=== PATIENT | female | born 1995 | race Caucasian/White ===

== ENCOUNTER 2020-12-20 00:06 | Emergency (ER) | payer OTHER ==
[2020-12-20] MEDS ORDERED: Cephalexin 500 MG Cap PO ONE (01:24)
--- NOTE | 2020-12-20 01:54 | EDM.PDOC ---
ED HPI GENERAL MEDICAL PROBLEM - General Chief Complaint: Genitourinary Problem Stated Complaint: POSSIBLE UTI Time Seen by Provider: 12/20/20 00:42 - History of Present Illness INITIAL COMMENTS - FREE TEXT/NARRATIVE: CHIEF COMPLAINT(S): Blood in urine HISTORY OF PRESENT ILLNESS: This is a 25-year-old woman without any significant past medical history who comes to the emergency department with a chief complaint of blood in urine. The patient states that approximately 2 hours ago she suddenly started experiencing suprapubic pressure and when she went to use the restroom she noticed blood in her urine. She denies any vaginal bleeding as she checked. She denies any pain with urination but states that she does have increased urination. She denies any back pain, fever or chills. She states that she has had urinary tract infections in the past but has not had bleeding with them. She denies any other symptoms such as chest pain, shortness of breath, abdominal pain, nausea, or vomiting. REVIEW OF SYSTEMS: Constitutional: Denies fever, chills. Eyes: Denies eye pain Ears, Nose, Mouth, & Throat: Denies earache Cardiovascular: Denies chest pain Respiratory: Denies shortness of breath Gastrointestinal: Denies Nausea, vomiting, diarrhea, hematochezia. Genitourinary: Positive for hematuria and increased urinary frequency and suprapubic pressure. Denies dysuria or vaginal bleeding or discharge Skin:Denies a rash Neurological: Denies blurred vision, numbness, tingling, weakness Psychiatric: Denies depression PAST MEDICAL HISTORY: As per history of present illness and as reviewed below otherwise noncontributory. SURGICAL HISTORY: As per history of present illness and as reviewed below otherwise noncontributory. SOCIAL HISTORY: As per history of present illness and as reviewed below otherwise noncontributory. FAMILY HISTORY: As per history of present illness and as reviewed below otherwise noncontributory. EXAMINATION OF ORGAN SYSTEMS/BODY AREAS: Constitutional: Blood pressure was 138/87, heart rate 95, respiratory rate 16 with an oxygen saturation 97% on room air. Temperature 36.3 General: Overall well-appearing woman who is in no acute distress. Psychiatric: Appropriate mood and affect. Eyes: No scleral icterus or conjunctival erythema ENMT: Moist mucous membranes. No pharyngeal erythema Cardiovascular: Regular, rate, and rhythm. No gallops, murmurs, or rubs. Bilateral upper extremity pulses symmetric and intact. No peripheral edema. No JVD. Respiratory: Lungs clear to auscultation bilaterally. No wheezes, rales, or rhonchi. Gastrointestinal: Soft, non-tender, non-distended. Normoactive bowel sounds Genitourinary: Mild suprapubic pressure sensation with palpation. No CVA tenderness. Pelvic examination deferred as patient does not believe it is coming from her vaginal canal. Musculoskeletal: Normal range of motion. Skin: No lesions or abrasions. Neurological: Alert, GCS 15 MEDICAL DECISION MAKING AND COURSE IN THE ED WITH INTERPRETATION/REVIEW OF DIAGNOSTIC STUDIES: This is a 25-year-old woman with a past medical history of prior UTI who comes to the emergency department with sudden onset hematuria with suprapubic pressure without any vital sign abnormalities or CVA tenderness. At this time will obtain a urinalysis. Obtain an hCG level. Given the hematuria the most common causes a urinary tract infection. Differential does include nephrolithiasis however the patient is currently not experiencing any back pain or radiation of pain from her back. The patient overall appears well and comfortable therefore no CT will be obtained. Urinalysis was a clean catch and was trace for leukocyte esterase, negative for nitrites, and positive for blood. WBC count 2-4. Interpretation: Hematuria hCG is negative After urinalysis I did discuss with her that the most common cause of hematuria is from cystitis. I discussed with her that I will be providing her with Keflex here and a prescription to be taking at home. I did discuss her at this time differential also included nephrolithiasis however given that she is currently not experiencing any back pain and is appearing well if there is a small stone it may pass on its own. I discussed with her that if she were to have any worsening symptoms such as increased pain, development of back pain, decreased urination, or fever she should return to the emergency department. She was amenable to discharge at this time and had no further questions DISPOSITION: The patient was discharged home in stable condition. The patient will follow up with primary care physician in [place] CONDITION: Fair PROCEDURES: None FINAL IMPRESSION(S)/DIAGNOSES: 1. Acute hematuria likely secondary to cystitis Joel Van M.D. 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: - Infectious Disease History Infectious Disease History: Reports: Herpes Social & Family History - Family History Family Medical History: No Pertinent Family History - Tobacco Use Packs/Tins Daily: 0.5 - Caffeine Use Caffeine Use: Reports: None - Recreational Drug Use Recreational Drug Use: No ED ROS GENERAL - Review of Systems Review Of Systems: See Below ED EXAM, RENAL/ - Physical Exam Exam: See Below Course - Vital Signs Last Recorded V/S: Last Vital Signs Temp 36.3 C 12/20/20 00:34 Pulse 62 12/20/20 01:44 Resp 18 12/20/20 01:44 BP 131/67 12/20/20 01:44 Pulse Ox 97 12/20/20 01:44 - Orders/Labs/Meds Orders: Active Orders 24 hr Category Date Time Status CULTURE URINE [RM] Stat Lab 12/20/20 00:19 Received Labs: Laboratory Tests 12/20/20 12/20/20 Range/Units 00:19 00:19 Urine Color RED Urine Appearance CLOUDY Urine pH 6.0 (5.0-8.0) Ur Specific Rogers >= 1.030 (1.001-1.035) Urine Protein 100 H (NEGATIVE) mg/dL Urine Glucose (UA) NEGATIVE (NEGATIVE) mg/dL Urine Ketones NEGATIVE (NEGATIVE) mg/dL Urine Occult Blood LARGE H (NEGATIVE) Urine Nitrite NEGATIVE (NEGATIVE) Urine Bilirubin NEGATIVE (NEGATIVE) Urine Urobilinogen 0.2 (<2.0) EU/dL Ur Leukocyte Esterase TRACE H (NEGATIVE) U Hyaline Cast (Auto) (0-2/LPF) Urine RBC TOO NUMEROUS TO CT H (0-2/HPF) Urine WBC 2-4 (0-5/HPF) Ur Epithelial Cells RARE (NONE-FEW) Urine Bacteria RARE (NEGATIVE) Urine HCG, Qual NEGATIVE (NEGATIVE) Meds: Medications Discontinued Medications Generic Name Dose Route Start Last Admin Trade Name Freq PRN Reason Stop Dose Admin Cephalexin 500 mg 12/20/20 01:24 12/20/20 01:43 Keflex PO 12/20/20 01:25 500 mg ONETIME ONE Administration Departure - Departure Time of Disposition: 01:52 Disposition: Home, Self-Care 01 Condition: Fair Clinical Impression: UTI, Urinary tract infectious disease - Discharge Information *PRESCRIPTION DRUG MONITORING PROGRAM REVIEWED*: No *COPY OF PRESCRIPTION DRUG MONITORING REPORT IN PATIENT MANISH: No Prescriptions: cephALEXin [Keflex] 500 mg PO Q12HR #10 cap Instructions: Urinary Tract Infection, Adult, [id number] Referrals: PCP,None [Primary Care Provider] - Forms: ED Department Discharge Additional Instructions: Your evaluated today on an emergent basis. At this time we did discuss that the most common cause of blood in the urine is a bladder infection. We started you on Keflex and it is important that you complete the entire course of antibiotics. In addition we did discuss that given the sudden onset of your symptoms there could have been a small stone which you may pass. At this time if you have any worsening pain, back pain, fever please return to the emergency department. [facility] - Primary [facility] [address] [place] [address] [place] [address] The patient is informed of any results of their evaluation and diagnostic workup and all questions are answered. They are given discharge instructions and return precautions. The patient is stable for discharge. The patient states they understand and agree with the plan and that they will return if their symptoms get worse or if they have any new concerns. The following information is given to patients seen in the emergency department who are being discharged to home. This information is to outline your options for follow-up care. We provide all patients seen in our emergency department with a follow-up referral. The need for follow-up, as well as the timing and circumstances, are variable depending upon the specifics of your emergency department visit. If you don't have a primary care physician on staff, we will provide you with a referral. We always advise you to contact your personal physician following an emergency department visit to inform them of the circumstance of the visit and for follow-up with them and/or the need for any referrals to a consulting specialist. The emergency department will also refer you to a specialist when appropriate. T his referral assures that you have the opportunity for follow-up care with a specialist. All of these measure are taken in an effort to provide you with optimal care, which includes your follow-up. Under all circumstances we always encourage you to contact your private physician who remains a resource for coordinating your care. When calling for follow-up care, please make the office aware that this follow-up is from your recent emergency room visit. If for any reason you are refused follow-up, please contact the [facility] Emergency Department at and asked to speak to the emergency department charge nurse. Sepsis Event Note (ED) - Evaluation Sepsis Screening Result: No Definite Risk - My Orders Last 24 Hours: My Active Orders 12/20/20 00:19 CULTURE URINE [RM] Stat - Assessment/Plan Last 24 Hours: My Active Orders 12/20/20 00:19 CULTURE URINE [RM] Stat
== END 2020-12-20 02:04 | disposition home or self-care (01) ==
LOC: MW.ED 00:06
DX: N39.0 Urinary tract infection, site not specified (principal); R31.9 Hematuria, unspecified; Z72.0 Tobacco use
CPT/HCPCS: 81001; 81025; 87086; 87088; 87186; 99283; A9270; 99282

== ENCOUNTER 2021-11-15 08:56 | Inpatient (IN) | payer OTHER ==
[2021-11-15] MEDS ORDERED: Water For Irrigation,Sterile 1,000 ML Container IRR PRN (09:16)
[2021-11-15] MEDS ORDERED: Carboprost Tromethamine 250 MCG/1 ML Amp IM PRN (09:16)
[2021-11-15] MEDS ORDERED: Methylergonovine 0.2 MG/1 ML Amp IM PRN (09:16)
[2021-11-15] MEDS ORDERED: Sodium Chloride 0.9% 20 ML SDV IV PRN (09:16)
[2021-11-15] MEDS ORDERED: Butorphanol 1 MG/ML SDV IVPUSH PRN (09:16)
[2021-11-15] MEDS ORDERED: Tranexamic Acid 1,000 MG in Sodium Chloride 0.9% 100 ML IV PRN (09:16)
[2021-11-15] MEDS ORDERED: Lidocaine 1% 50 ML MDV INJECT PRN (09:16)
[2021-11-15] MEDS ORDERED: Misoprostol 200 MCG Tab PO PRN (09:16)
[2021-11-15] MEDS ORDERED: Nalbuphine 10 MG/1 ML Vial IVPUSH PRN (09:16)
[2021-11-15] MEDS ORDERED: Sodium Chloride 0.9% 2.5 ML Syringe FLUSH PRN (09:16)
[2021-11-15] MEDS ORDERED: Sodium Chloride 0.9% 10 ML Syringe FLUSH PRN (09:16)
[2021-11-15] MEDS ORDERED: Oxytocin/0.9 % Sodium Chloride 30 UNIT/500 ML BAG IV SCH (09:30)
[2021-11-15] MEDS ORDERED: Lactated Ringers 1,000 ML IV SCH (09:30)
[2021-11-15] MEDS ORDERED: Bisacodyl 10 MG Supp RECTAL PRN (09:59)
[2021-11-15] MEDS ORDERED: Ibuprofen 400 MG Tab PO PRN (09:59)
[2021-11-15] MEDS ORDERED: Benzocaine/Menthol 20%-0.5% Spray 78 GM Cannister TOP PRN (09:59)
[2021-11-15] MEDS ORDERED: Lanolin 100% Cream 7 GM Tube TOP PRN (09:59)
[2021-11-15] MEDS ORDERED: Docusate Sodium 100 MG Cap PO PRN (09:59)
[2021-11-15] MEDS ORDERED: Acetaminophen 500 MG Tab PO PRN (09:59)
[2021-11-15] MEDS ORDERED: oxyCODONE 5 MG Tab PO PRN (09:59)
[2021-11-15] MEDS ORDERED: Witch Hazel Medicated Pads 40/Jar TOP PRN (09:59)
--- NOTE | 2021-11-15 12:09 | OR ---
SURGEON: Coretta Whiting M.D. DATE OF PROCEDURE: 11/15/2021 PREOPERATIVE DIAGNOSES: 1. 39-2/7 weeks intrauterine . 2. Active spontaneous labor. POSTOPERATIVE DIAGNOSES: 1. 39-2/7 weeks intrauterine . 2. Active spontaneous labor. PROCEDURE: Term spontaneous vaginal delivery. PRIMARY SURGEON: Coretta Whiting M.D. ANESTHESIA: None. ESTIMATED BLOOD LOSS: Less than 200 mL. FINDINGS: Liveborn male. scores of 8 and 8, weighing 3360 g. Placenta spontaneous. Schultze intact with 3 vessels. Perineum intact. COMPLICATIONS: None known. DISPOSITION: Mother and baby are in LDR in good condition. BRIEF HISTORY: This is a 25-year-old female, G4, P3-0-0-3. She is a patient of Caridad Lemons CNM, planning a home delivery. She did labor at home throughout the night but towards the end of labor decided that she wanted an epidural. Therefore, Caridad brought her to the hospital to see if she was able to get an epidural. She is known to be group B strep positive. Caridad had counseled her and after informed consent of risks of GBS, and benefit of prophylaxis, the patient declined group B strep prophylaxis. She is also HSV positive denies any symptoms for 2 years she is on valacyclovir for HSV prophylaxis and on duloxetine for depression. She presented to Labor and Delivery. I was called for delivery upon the patient's arrival and I arrived within 8 minutes of being called. When I arrived the baby was on the warmer, being resuscitated. The cord had been clamped by the L&D nurse. DESCRIPTION OF PROCEDURE: With the patient in the supine lithotomy position, the fundus was slightly massaged and with minimal maternal expulsive effort, the placenta was delivered. Prior to delivering the placenta, I did doubly clamped the cord and collect cord ABGs as well as routine cord blood sampling. Upon inspection of the pelvis and perineum, there were no periurethral, vaginal sidewall, cervical, rectal, or perineal lacerations. EBL was by quantitative analysis 170 mL. The patient declined IV. The patient declined Pitocin. There was bright red bleeding after delivery of the placenta, and therefore, she did receive 800 mcg of Cytotec rectally. With this, the fundus was firm and final sponge, needle, and instrument counts were correct. There were no known complications. Mother and baby are in LDR in good condition. JACK MORROW /[id number] MTDD
--- NOTE | 2021-11-15 12:39 | HP ---
DATE OF : 1995 PRIMARY CARE PHYSICIAN: None PCP CHIEF COMPLAINT: Precipitous labor. HISTORY: This is a 25-year-old female G4, P3-0-0-3, EDC of 11/21/2021 by LMP consistent with ultrasounds at 9 and 19 weeks gestation. Over the past month, she has transferred care from [facility] to Caridad Lemons CNM, for a planned home delivery. Her care has been complicated by a remote history of HSV. She has been on valacyclovir since 36 weeks gestation and denies any current or recent burning, itching, irritation, lesions, or symptoms. She is also on duloxetine for depression and takes inhalers for mild asthma. She presents to Labor and Delivery with her entry writer requesting an epidural. However, upon arrival in the room, she imminently delivered. It was a precipitous delivery with the labor and delivery nurse. She declined IV. Upon my arrival, placenta had not yet delivered, and the was receiving resuscitation and under the nursing staff present. 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 PAST SURGICAL HISTORY: She denies past surgeries. PAST OBSTETRIC HISTORY: In 2015, she had of 6 pounds 12 ounces in [place] (); in 2016, she had an 8 pounds 1 ounce male in [place] (); and in 2019, she had an male, [place]. SOCIAL HISTORY: She denies use of tobacco, alcohol, or street drugs. FAMILY HISTORY: She has no family history of genetic disorders. Family members CARE AIDE tumor, and cervical cancer. REVIEW OF SYSTEMS: Negative for headache, visual changes, increase in swelling, or shortness of breath. She notes that she has had some excessive weight gain during the . PHYSICAL EXAMINATION: VITAL SIGNS: Blood pressure 125/70, pulse is 92. GENERAL: She is alert and oriented, in no acute distress. NECK: Supple without lymphadenopathy or thyromegaly. LUNGS: Clear bilaterally. CARDIOVASCULAR: Regular rate without murmur. ABDOMEN: Soft, now . Fundus is firm below the umbilicus. EXTREMITIES: Show trace edema. PELVIC: Perineum is intact. ASSESSMENT AND PLAN: A 39-2/7 week intrauterine . Precipitous delivery upon arrival, although labor itself was not precipitous and was managed at home with entry writer. History of herpes simplex virus with negative examination, on valacyclovir. History of asthma, asymptomatic. History of depression, we will continue on duloxetine. JACK MORROW /[id number] MTDD
[2021-11-15] MEDS: Acetaminophen 500 MG Tab PO PRN ×2 (13:46→21:15)
[2021-11-15] MEDS: Ibuprofen 800 MG Tab PO PRN (13:48)
[2021-11-16] MEDS: Ibuprofen 800 MG Tab PO PRN ×2 (01:10→14:13)
--- NOTE | 2021-11-16 10:02 | PCM.PNPP ---
- General Info Date of Service: 11/16/21 Functional Status: Reports: Pain Controlled, Tolerating Diet, Ambulating, Urinating - Review of Systems General: Reports: Fatigue. Denies: Fever, Weakness Pulmonary: Denies: Shortness of Breath Cardiovascular: Denies: Chest Pain, Palpitations, Lightheadedness Gastrointestinal: Denies: Abdominal Pain, Nausea, Vomiting Genitourinary: Denies: Flank Pain Musculoskeletal: Reports: No Symptoms Skin: Reports: No Symptoms Neurological: Reports: No Symptoms Psychiatric: Reports: No Symptoms - General Info Date of Service: 11/16/21 - Patient Data Vital Signs - Most Recent: Last Vital Signs Temp 36.3 C 11/16/21 08:13 Pulse 83 11/16/21 08:13 Resp 16 11/16/21 08:13 BP 117/66 11/16/21 08:13 Pulse Ox 98 11/16/21 08:13 Weight - Most Recent: 102.058 kg Lab Results - Last 24 Hours: Laboratory Results - last 24 hr 11/15/21 11/15/21 11/15/21 Range/Units 11:10 12: 12:25 WBC 28.14 H (4.0-11.0) K/uL RBC 4.01 L (4.30-5.90) M/uL Hgb 11.9 L (12.0-16.0) g/dL Hct 35.2 L (36.0-46.0) % MCV 87.8 (80.0-98.0) fL MCH 29.7 (27.0-32.0) pg MCHC 33.8 (31.0-37.0) g/dL RDW Std Deviation 43.5 (28.0-62.0) fl RDW Coeff of Petr 14 (11.0-15.0) % Plt Count 233 (150-400) K/uL MPV 9.30 (7.40-12.00) fL Nucleated RBC % 0.0 /100WBC Nucleated RBCs # 0 K/uL SARS-CoV-2 RNA (ANCELMO) NEGATIVE (NEGATIVE) Blood Type B POSITIVE Antibody Screen NEGATIVE 11/16/21 Range/Units 05:35 WBC (4.0-11.0) K/uL RBC (4.30-5.90) M/uL Hgb 10.1 L (12.0-16.0) g/dL Hct 30.2 L (36.0-46.0) % MCV (80.0-98.0) fL MCH (27.0-32.0) pg MCHC (31.0-37.0) g/dL RDW Std Deviation (28.0-62.0) fl RDW Coeff of Petr (11.0-15.0) % Plt Count (150-400) K/uL MPV (7.40-12.00) fL Nucleated RBC % /100WBC Nucleated RBCs # K/uL SARS-CoV-2 RNA (ANCELMO) (NEGATIVE) Blood Type Antibody Screen Med Orders - Current: Current Medications Acetaminophen (Acetaminophen 500 Mg Tab) 500 mg PO Q4H PRN PRN Reason: Pain (mild 1-3) Acetaminophen (Acetaminophen 500 Mg Tab) 1,000 mg PO Q4H PRN PRN Reason: Pain (mild 1-3) Last Admin: 11/15/21 21:15 Dose: 1,000 mg Documented by: Benzocaine/Menthol (Benzocaine/Menthol 20%-0.5% Hobbs 78 Gm Cannister) 78 gm TOP ASDIRECTED PRN PRN Reason: Perineal Comfort Measure Last Admin: 11/15/21 13:45 Dose: 1 container Documented by: Bisacodyl (Bisacodyl 10 Mg Supp) 10 mg RECTAL ONETIME PRN PRN Reason: Constipation Butorphanol Tartrate (Butorphanol 1 Mg/Ml Sdv) 1 mg IVPUSH Q1H PRN PRN Reason: Pain (severe 7-10) Carboprost Tromethamine (Carboprost Tromethamine 250 Mcg/1 Ml Amp) 250 mcg IM ASDIRECTED PRN PRN Reason: Post Hemorrhage Docusate Sodium (Docusate Sodium 100 Mg Cap) 100 mg PO Q12H PRN PRN Reason: Constipation Emollient Ointment (Lanolin 100% Cream 7 Gm Tube) 0 gm TOP ASDIRECTED PRN PRN Reason: Sore Nipples Last Admin: 11/15/21 13:45 Dose: 1 applic Documented by: Oxytocin/Sodium Chloride (Oxytocin 30 Unit In Ns 0.9% 500 Ml Premix) 30 unit in 500 mls @ 999 mls/hr IV TITRATE NEHA Tranexamic Acid 1,000 mg/ (Sodium Chloride) 110 mls @ 660 mls/hr IV ONETIME PRN PRN Reason: Bleeding Lactated Ringer's (Ringers, Lactated) 1,000 mls @ 150 mls/hr IV ASDIRECTED NEHA Ibuprofen (Ibuprofen 400 Mg Tab) 400 mg PO Q4H PRN PRN Reason: Pain (mild 1-3) Ibuprofen (Ibuprofen 800 Mg Tab) 800 mg PO Q6H PRN PRN Reason: Cramping Last Admin: 11/16/21 01:10 Dose: 800 mg Documented by: Lidocaine HCl (Lidocaine 1% 50 Ml Mdv) 50 ml INJECT ONETIME PRN PRN Reason: Laceration repair Methylergonovine Maleate (Methylergonovine 0.2 Mg/1 Ml Amp) 0.2 mg IM A SDIRECTED PRN PRN Reason: Post Hemorrhage Misoprostol (Misoprostol 200 Mcg Tab) 800 mcg PO ONETIME PRN PRN Reason: Post Hemorrhage Last Admin: 11/15/21 09:14 Dose: 800 mcg Documented by: Nalbuphine HCl (Nalbuphine 10 Mg/1 Ml Vial) 10 mg IVPUSH Q1H PRN PRN Reason: Pain (severe 7-10) Oxycodone HCl (Oxycodone 5 Mg Tab) 5 mg PO Q2H PRN PRN Reason: Pain (severe 7-10) Sodium Chloride (Sodium Chloride 0.9% 10 Ml Syringe) 10 ml FLUSH ASDIRECTED PRN PRN Reason: Keep Vein Open Sodium Chloride (Sodium Chloride 0.9% 2.5 Ml Syringe) 2.5 ml FLUSH ASDIRECTED PRN PRN Reason: Keep Vein Open Sodium Chloride (Sodium Chloride 0.9% 20 Ml Sdv) 10 ml IV ASDIRECTED PRN PRN Reason: IV Use Sterile Water (Water For Irrigation,Sterile 1,000 Ml Container) 1,000 ml IRR ASDIRECTED PRN PRN Reason: delivery Witch Valerie (Witch Valerie Medicated Pads 40/Jar) 1 pad TOP ASDIRECTED PRN PRN Reason: comfort care Last Admin: 11/15/21 13:45 Dose: 1 container Documented by: - Infant Interaction Support Person: Significant Other - Recovery Exam Fundal Tone: Firm Fundal Level: 1 Fingerbreadths Below Umbilicus Fundal Placement: Midline Lochia Amount: Small Lochia Color: Rubra/Red Perineum Description: Intact, Minimal Bruising/Swelling Episiotomy/Laceration: None Bladder Status: Voiding Urinary Elimination: Voided - Exam General: Alert, Oriented Lungs: Normal Respiratory Effort Cardiovascular: Regular Rate, Regular Rhythm GI/Abdominal Exam: Normal Bowel Sounds, Soft Extremities: Pedal Edema (trace'). No: Em's Sign Skin: Warm, Dry, Intact Neurological: No New Focal Deficit Psy/Mental Status: Alert - Problem List & Annotations (1) Vaginal delivery SNOMED Code(s): 527675570 Code(s): O80 - ENCOUNTER FOR FULL-TERM UNCOMPLICATED DELIVERY Status: Acute Current Visit: Yes - Problem List Review Problem List Initiated/Reviewed/Updated: Yes - Assessment Assessment:: PPD 1 status post GBBS +--not treated H/O HSV 2--on valacylovir prophylaxis - Plan Plan:: Continue PP cares. Anticipate discharge tomorrow.
--- NOTE | 2021-11-17 08:55 | PCM.PNPP ---
- General Info Date of Service: 11/17/21 Functional Status: Reports: Pain Controlled, Tolerating Diet, Ambulating, Urinating - Review of Systems General: Reports: No Symptoms HEENT: Reports: No Symptoms Pulmonary: Reports: No Symptoms Cardiovascular: Reports: No Symptoms Gastrointestinal: Reports: No Symptoms Genitourinary: Reports: No Symptoms Musculoskeletal: Reports: No Symptoms Skin: Reports: No Symptoms Neurological: Reports: No Symptoms Psychiatric: Reports: No Symptoms - Patient Data Vital Signs - Most Recent: Last Vital Signs Temp 36.3 C 11/17/21 07:15 Pulse 80 11/17/21 07:15 Resp 16 11/17/21 07:15 BP 107/72 11/17/21 07:15 Pulse Ox 98 11/17/21 07:15 Weight - Most Recent: 225 lb Lab Results - Last 24 Hours: Laboratory Results - last 24 hr 11/16/21 11/16/21 Range/Units 08:55 08:55 Cord ABG pH 7.218 (7.18-7.38) Cord ABG Base Excess -4.2 (-10--2) Cord VBG pH 7.333 (7.25-7.45) Cord VBG Base Excess -1.8 H (-10--2) Med Orders - Current: Current Medications Acetaminophen (Acetaminophen 500 Mg Tab) 500 mg PO Q4H PRN PRN Reason: Pain (mild 1-3) Acetaminophen (Acetaminophen 500 Mg Tab) 1,000 mg PO Q4H PRN PRN Reason: Pain (mild 1-3) Last Admin: 11/15/21 21:15 Dose: 1,000 mg Documented by: Benzocaine/Menthol (Benzocaine/Menthol 20%-0.5% [place] 78 Gm Cannister) 78 gm TOP ASDIRECTED PRN PRN Reason: Perineal Comfort Measure Last Admin: 11/15/21 13:45 Dose: 1 container Documented by: Bisacodyl (Bisacodyl 10 Mg Supp) 10 mg RECTAL ONETIME PRN PRN Reason: Constipation Butorphanol Tartrate (Butorphanol 1 Mg/Ml Sdv) 1 mg IVPUSH Q1H PRN PRN Reason: Pain (severe 7-10) Carboprost Tromethamine (Carboprost Tromethamine 250 Mcg/1 Ml Amp) 250 mcg IM ASDIRECTED PRN PRN Reason: Post Hemorrhage Docusate Sodium (Docusate Sodium 100 Mg Cap) 100 mg PO Q12H PRN PRN Reason: Constipation Emollient Ointment (Lanolin 100% Cream 7 Gm Tube) 0 gm TOP ASDIRECTED PRN PRN Reason: Sore Nipples Last Admin: 11/15/21 13:45 Dose: 1 applic Documented by: Oxytocin/Sodium Chloride (Oxytocin 30 Unit In Ns 0.9% 500 Ml Premix) 30 unit in 500 mls @ 999 mls/hr IV TITRATE [facility] Tranexamic Acid 1,000 mg/ (Sodium Chloride) 110 mls @ 660 mls/hr IV ONETIME PRN PRN Reason: Bleeding Lactated Ringer's (Ringers, Lactated) 1,000 mls @ 150 mls/hr IV ASDIRECTED [facility] Ibuprofen (Ibuprofen 400 Mg Tab) 400 mg PO Q4H PRN PRN Reason: Pain (mild 1-3) Ibuprofen (Ibuprofen 800 Mg Tab) 800 mg PO Q6H PRN PRN Reason: Cramping Last Admin: 11/16/21 14:13 Dose: 800 mg Documented by: Lidocaine HCl (Lidocaine 1% 50 Ml Mdv) 50 ml INJECT ONETIME PRN PRN Reason: Laceration repair Methylergonovine Maleate (Methylergonovine 0.2 Mg/1 Ml Amp) 0.2 mg IM ASDIRECT ED PRN PRN Reason: Post Hemorrhage Misoprostol (Misoprostol 200 Mcg Tab) 800 mcg PO ONETIME PRN PRN Reason: Post Hemorrhage Last Admin: 11/15/21 09:14 Dose: 800 mcg Documented by: Nalbuphine HCl (Nalbuphine 10 Mg/1 Ml Vial) 10 mg IVPUSH Q1H PRN PRN Reason: Pain (severe 7-10) Oxycodone HCl (Oxycodone 5 Mg Tab) 5 mg PO Q2H PRN PRN Reason: Pain (severe 7-10) Sodium Chloride (Sodium Chloride 0.9% 10 Ml Syringe) 10 ml FLUSH ASDIRECTED PRN PRN Reason: Keep Vein Open Sodium Chloride (Sodium Chloride 0.9% 2.5 Ml Syringe) 2.5 ml FLUSH ASDIRECTED PRN PRN Reason: Keep Vein Open Sodium Chloride (Sodium Chloride 0.9% 20 Ml Sdv) 10 ml IV ASDIRECTED PRN PRN Reason: IV Use Sterile Water (Water For Irrigation,Sterile 1,000 Ml Container) 1,000 ml IRR ASDIRECTED PRN PRN Reason: delivery Witch Valerie (Witch Valerie Medicated Pads 40/Jar) 1 pad TOP ASDIRECTED PRN PRN Reason: comfort care Last Admin: 11/15/21 13:45 Dose: 1 container Documented by: - Interaction Disposition, : at Bedside Interaction: Holding Infant Support Person: Significant Other - Recovery Exam Fundal Tone: Firm Fundal Level: 2 Fingerbreadths Below Umbilicus Fundal Placement: Midline Lochia Amount: Scant Lochia Color: Rubra/Red Perineum Description: Intact, Minimal Bruising/Swelling Episiotomy/Laceration: None Bladder Status: Voiding Urinary Elimination: Voided - Exam General: Alert, Oriented, Cooperative, No Acute Distress HEENT: Pupils Equal, Pupils Reactive Neck: Supple, Trachea Midline, No JVD Lungs: Normal Respiratory Effort GI/Abdominal Exam: Soft, Non-Tender, No Distention Extremities: Normal Inspection, Normal Range of Motion, Non-Tender, No Pedal Edema Skin: Warm, Dry, Intact Neurological: No New Focal Deficit Psy/Mental Status: Alert, Normal Affect, Normal Mood - Problem List Review Problem List Initiated/Reviewed/Updated: Yes - Assessment Assessment:: 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 Anticipate discharge today. Will complete circumcision for baby boy.
== END 2021-11-17 11:30 | disposition home or self-care (01) | DRG 807 ==
LOC: MW.OBCHECK 08:56 → MW.OB 08:57 → OBSVTOIN 08:57 → MW.OB 16:58
PROVIDERS: ADMIT Obstetrics & Gynecology; ATTEND Obstetrics & Gynecology
PROC: 10E0XZZ Delivery of Products of Conception, External Approach (ICD-10-PCS; principal; 2021-11-15)
DX: O62.3 Precipitate labor (principal); Z37.0 Single live birth; Z3A.39 39 weeks gestation of pregnancy; O99.824 Streptococcus B carrier state complicating childbirth; Z20.822 Contact with and (suspected) exposure to COVID-19
CPT/HCPCS: 36415; 59409; 82803; 85014; 85018; 85027; 86592; 86850; 86900; 86901; A9270-GY; U0002

== ENCOUNTER 2022-07-18 20:26 | Emergency (ER) | payer OTHER ==
[2022-07-18] MEDS ORDERED: Ibuprofen 600 MG Tab PO ONE (21:05)
== END 2022-07-18 21:13 | disposition home or self-care (01) ==
LOC: MW.ED 20:26
DX: R07.9 Chest pain, unspecified (principal); Z79.899 Other long term (current) drug therapy
CPT/HCPCS: 93005; 99284; A9270; 93010

== ENCOUNTER 2022-10-20 19:58 | Emergency (ER) | payer OTHER ==
[2022-10-20] MEDS ORDERED: Sulfamethoxazole/Trimethoprim 800-160 MG Tab PO ONE (22:04)
== END 2022-10-20 22:30 | disposition home or self-care (01) ==
LOC: MW.ED 19:58
DX: N39.0 Urinary tract infection, site not specified (principal)
CPT/HCPCS: 81001; 81025; 99283; A9270

== ENCOUNTER 2023-01-09 20:22 | Emergency (ER) | payer OTHER ==
[2023-01-09] MEDS ORDERED: Albuterol/Ipratropium 3.0-0.5 MG/3 ML Neb Soln NEB ONE (20:27)
[2023-01-09] MEDS ORDERED: predniSONE 20 MG Tab PO ONE (20:58)
[2023-01-09] MEDS ORDERED: Albuterol 0.083% 2.5 MG/3 ML Neb Soln NEB ONE (21:03)
[2023-01-09 22:03] LABS: CORONAVIRUS COVID-19 NAA NEGATIVE (NEGATIVE); INFLUENZA A NAA NEGATIVE (NEGATIVE); INFLUENZA B NAA NEGATIVE (NEGATIVE); RESPIRATORY SYNCYTIAL VIR NAA NEGATIVE (NEGATIVE)
== END 2023-01-09 23:31 | disposition home or self-care (01) ==
LOC: MW.ED 20:22
DX: J45.901 Unspecified asthma with (acute) exacerbation (principal); Z79.899 Other long term (current) drug therapy; Z20.822 Contact with and (suspected) exposure to COVID-19
CPT/HCPCS: 0241U; 71045; 99285; A9270; J7620-GY